=== PATIENT | female | born 1970 | race Two or more races ===

== ENCOUNTER 2024-05-03 06:45 | Day surgery (SDC) | payer OTHER ==
[~2024-05-03] VITALS: Ht 177.8 cm; Wt 79.4 kg
[2024-05-03] MEDS ORDERED: SODIUM CHLORIDE 0.9% 1,000 ML ONE (07:25)
[2024-05-03] MEDS ORDERED: FentaNYL CITRATE PF 100 MCG/2 ML VIAL ONE (08:20)
[2024-05-03] MEDS ORDERED: MIDAZOLAM HCL 2 MG/2 ML VIAL ONE (08:20)
[2024-05-03] MEDS: SODIUM CHLORIDE 0.9% 1,000 ML IV ONE (08:30)
[2024-05-03 09:19] VITALS: PULSE 84; RESP 20; O2SAT 99
[2024-05-03] MEDS ORDERED: MethylPREDNISolone SOD SUCC 125 MG/2 ML VIAL ONE (10:19)
[2024-05-03] MEDS: MethylPREDNISolone SOD SUCC 125 MG/2 ML VIAL IVP ONE (10:24)
[2024-05-03] MEDS ORDERED: ALBUTEROL SULFATE 2.5 MG/0.5 ML NEB SOLUTION NEB ONE (12:00)
[2024-05-03] MEDS ORDERED: LIDOCAINE 2% 11 ML JELLY ONE (12:00)
[2024-05-03] MEDS ORDERED: LIDOCAINE 4% 50 ML SOLUTION ONE (12:00)
[2024-05-03] MEDS ORDERED: BENZOCAINE 20% 50 MCG/SPRAY 57 GM ONE (12:00)
== END 2024-05-03 12:10 | disposition home or self-care (01) ==
LOC: SURGERY 06:45
PROVIDERS: ATTEND Internal Medicine Critical Care Medicine
DX: R05.3 Chronic cough (principal); J38.4 Edema of larynx; B37.0 Candidal stomatitis; J44.9 Chronic obstructive pulmonary disease, unspecified; I10 Essential (primary) hypertension; Z98.890 Other specified postprocedural states
CPT/HCPCS: 31623; 87206; 87101; 87220; 87070; 88108; 31624; 71045; 87015; J3010; J2250; J2919; J7030; J7613; Z7610